=== PATIENT | male | born 1995 | race Caucasian/White ===

== ENCOUNTER 2023-09-09 16:33 | Emergency (ER) | payer BC, SELFPAY ==
[2023-09-09 16:39] VITALS: BP 107/76
--- NOTE | 2023-09-09 17:28 | ED.GENMED ---
Addendum entered and electronically signed by Diego Crews DO 10/10/23 03:17:
0.5 centimeter laceration of left hand repaired with wound adhesive. Single layer repair
Original Note:
History of Present Illness
General
Chief Complaint: Skin Surface Trauma
Source: patient
Exam Limitations: none
Time Seen by Provider: 09/09/23 17:08
Nursing documentation reviewed up to this point in time: agreed with
History of Present Illness
History of Present Illness:
28-year-old male presents emergency room complaining of cutting his left palm and unable to flex his pinky.
Past History
Past History
ED Past Medical History: Other (Congenital adrenal hyperplasia)
ED Past Surgical History: Other (Left ACL repair with complications, left below the knee amputation, tendon lengthening, nerve resection)
Social History
Tobacco: Non-smoker
Alcohol: None
Personal: Single
Living: with family
Employment: Student
Review of Systems
Review of Systems
Allergies reviewed?: Yes
All Other Systems: Not applicable
Constitutional: Reports no symptoms
EENT: Reports no symptoms
Respiratory: Reports no symptoms
Cardiac: Reports no symptoms
ABD/GI: Reports no symptoms
: Reports no symptoms
Musculoskeletal: Reports other (Unable to flex left small finger)
Skin: Reports no symptoms
Neurological: Reports no symptoms
Endocrine: Reports no symptoms
Hematologic/Lymphatic: Reports no symptoms
Psychiatric: Reports no symptoms
Phy Exam
Physical Exam
Physical Exam:
Physical Exam
General: no apparent distress, not acutely ill
Neck: supple. no meningeal signs. normal posterior pharynx
Heart: equal radial pulses.
HEENT: Pupils equal round reactive to light, EOMI
Lungs: no acute respiratory distress.
Neuro: alert and oriented. no focal neurological deficits cranial nerves II through XII intact
Skin: no rash
Psychiatric: well kept. interactive and cooperative
Extremities: no edema. no calf tenderness. negative homans. good distal pulses, laceration left palm, unable to flex left fifth digit at PIP, left BKA with prosthetic
Course
Vital Signs
Initial and Last Documented VS:
Initial Vital Signs
Temp Pulse Resp BP Pulse Ox
98.1 F 93 18 107/76 100
09/09/23 16:39 09/09/23 16:39 09/09/23 16:39 09/09/23 16:39 09/09/23 16:39
Last Documented Vital Signs
Temp Pulse Resp BP Pulse Ox
98.1 F 93 18 107/76 100
09/09/23 16:39 09/09/23 16:39 09/09/23 16:39 09/09/23 16:39 09/09/23 16:39
MDM/Problems Addressed
Differential Diagnosis Includes:
Foreign body, flexor tendon injury
MDM/Problems Addressed:
28-year-old male with left fifth flexor tendon injury of hand.
*Critical Care Note
Total Time (30-74mins, 75-104mins- exclusive of procedures): Not Applicable
Patient Management
Social determinants of health affecting care: Living situation
Discussion with other providers: [facility] (Orthopedic surgery, Dr. Collins)
Escalation/DeEscalation of care consider admission/obs:
Admit not indicated
ED Attending Note
-
Portions of this chart may have been created with voice recognition software.� Occasional wrong word or��sound alike� substitutions may have occurred due to the inherent limitations of voice recognition software.
Discharge Plan
Departure
Patient Disposition: Home (Routine Discharge)
Date of Disposition: 09/09/23
Time of Disposition: 17:49
Patient with high blood pressure during this ER visit?: No
Condition: Good
Discharge Problem:
Injury of flexor tendon of left hand
Instructions: Laceration Repair With Glue (DC), Common Finger Injuries ED
Prescriptions:
No Action
hydrocortisone 20 MG tablet
20 mg PO DAILY
Protein
Patient Comments:
shake
ondansetron HCl 4 MG tablet
4 mg PO Q8HPRN PRN (Reason: for vomiting) Qty: 14 0RF
terbinafine HCl [Lamisil AT] 30 GM cream
1 15 TP TID Qty: 30 0RF
penicillin V potassium 500 MG tablet
500 mg PO QID 7 Days 0RF
Referrals:
Yovany Lancaster MD [Family Provider] -
Charlie Allen MD [Active] - Call in 1-3 days for appt
Discharge Date and Time
Print Language: ROMANIAN
[2023-09-09] MEDS: ADACEL 0.5 ML IM (18:05)
== END 2023-09-09 18:18 | disposition home or self-care (01) ==
LOC: EMR 16:33
PROVIDERS: EMERGENCY PHYSICIAN Emergency Medicine; FAMILY PHYSICIAN Internal Medicine
DX: S66.109A Unspecified injury of flexor muscle, fascia and tendon of unspecified finger at wrist and hand level, initial encounter (principal); S61.412A Laceration without foreign body of left hand, initial encounter; W26.0XXA Contact with knife, initial encounter; Z23 Encounter for immunization
CPT/HCPCS: 99282; 12001; 90471; 90715